=== PATIENT | male | born 1960 | race Caucasian/White ===

== ENCOUNTER → 2017-04-05 | Outpatient (CLI) | payer MEDICARE, OTHER ==
[~2017-04-05] MED LIST: ACET500T33 PO; DEXL60CA2 PO; DOCU50CA9 PO; FINA5TAB4 PO; SIMV40TA3 PO; TRAM50TA PO; WARF7.5T6 PO; [UNRECOGNIZED DRUG - CODE] IV
--- NOTE | 2017-04-05 13:24 | RAD ---
Examination: CT head without contrast History: History of traumatic brain injury Comparison: MRI from 04/06/2015 Technique: [place] CT images of the head was performed without contrast PQRS Compliance Statement: One or more of the following individualized dose reduction techniques were utilized for this examination: 1. Automated exposure control 2. Adjustment of the mA and/or kV according to patient size 3. Use of iterative reconstruction technique Findings: There is no evidence of midline shift. Falx calcifications identified. There is no acute intracranial bleed or extra-axial fluid collection identified. The russo-white matter differentiation is maintained. The visualized lateral ventricles, third ventricle, fourth ventricle are appropriate for age. The basal cisterns are uneffaced. The visualized paranasal sinuses, mastoid air cells are clear. Impression No acute intracranial findings
== END | disposition home or self-care (01) ==
LOC: CT 12:45
PROVIDERS: ATTEND Physician Assistant
DX: S09.90XA Unspecified injury of head, initial encounter (principal); G96.19 Other disorders of meninges, not elsewhere classified; Z87.820 Personal history of traumatic brain injury
CPT/HCPCS: 70450

== ENCOUNTER → 2017-04-20 | Outpatient (CLI) | payer MEDICARE, OTHER ==
--- NOTE | 2017-04-20 14:45 | RAD ---
Cervical spine radiographs History: Neck pain. Bilateral upper extremity numbness and tingling. Chronic symptoms. Comparison: None. Findings: AP, lateral, swimmer's, and open-mouth odontoid views of the cervical spine, 5 images. On lateral views, evaluation of the C6 and C7 levels is limited. Visualized cervical spine is without evidence of acute fracture. There may be mild degenerative disc disease with mild loss of disc height at C4-5 and C5-6. No gross of prevertebral soft tissue swelling is identified. There is evidence of bilateral facet degeneration at C5-6. Impression: 1. Limited evaluation of the C6 and C7 levels. No acute fracture identified. 2. Suspect mild degenerative disc disease at C4-5 and C5-6. 3. Facet degeneration at C5-6.
== END | disposition home or self-care (01) ==
LOC: DXRADRC 11:02
PROVIDERS: ATTEND Physician Assistant
DX: M47.892 Other spondylosis, cervical region (principal); R20.2 Paresthesia of skin
CPT/HCPCS: 72040

== ENCOUNTER 2017-07-27 12:58 | Emergency (ER) | payer OTHER, MEDICARE ==
[~2017-07-27] VITALS: Ht 182.9 cm; Wt 131.0 kg
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
[2017-07-27 14:43] VITALS: BP 123/68
== END 2017-07-27 15:09 | disposition home or self-care (01) ==
LOC: ER 12:58
DX: S16.1XXA Strain of muscle, fascia and tendon at neck level, initial encounter (principal); D68.9 Coagulation defect, unspecified; Z86.718 Personal history of other venous thrombosis and embolism; Z88.6 Allergy status to analgesic agent; Z87.820 Personal history of traumatic brain injury; V89.2XXA Person injured in unspecified motor-vehicle accident, traffic, initial encounter; Y93.89 Activity, other specified; Y99.8 Other external cause status; Y92.410 Unspecified street and highway as the place of occurrence of the external cause
CPT/HCPCS: 70450; 72125; 99284-25

== ENCOUNTER → 2017-09-04 | Outpatient (CLI) | payer MEDICARE, OTHER ==
--- NOTE | 2017-09-04 15:14 | RAD ---
Indication: Bilateral knee pain for several months with no recent injury. Technique: 3 views of each knee are submitted for review. No comparison is available. Findings: There is no acute fracture or dislocation. There is mild degenerative change bilaterally. There is spurring greatest in the medial compartment on the right and lateral compartment on the left. There is no compartmental narrowing. There is no joint effusion or soft tissue swelling. Impression: Mild degenerative changes in both knees.
== END | disposition home or self-care (01) ==
LOC: DXRADRC 09:43
PROVIDERS: ATTEND Physician Assistant
DX: M17.0 Bilateral primary osteoarthritis of knee (principal)
CPT/HCPCS: 73562

== ENCOUNTER → 2018-03-06 | Outpatient (CLI) | payer MEDICARE, OTHER ==
[~2018-03-06] MED LIST changes: +WARF7.5T45 PO; -WARF7.5T6 PO
--- NOTE | 2018-03-06 14:41 | RAD ---
CT HEAD WITHOUT CONTRAST03/06/2018 4:30 PM Indication: R ARM WEAKNESS Comparison: CT head without contrast July 27, 2017 Procedure: Multidetector CT imaging of the head was performed without the administration of contrast. Findings: There is no evidence of acute intracranial hemorrhage. There is no evidence of acute territorial infarction. Please note that CT is limited for evaluation of acute ischemia. MRI offers more sensitive evaluation per clinical concern persists. No mass effect or midline shift is identified . The ventricles and basilar cisterns have an appropriate appearance. No abnormal extra-axial fluid collections are seen. No acute osseous changes are identified. Impression: No evidence of acute intracranial abnormality PQRS Compliance Statement: One or more of the following individualized dose reduction techniques were utilized for this examination: 1. Automated exposure control 2. Adjustment of the mA and/or kV according to patient size 3. Use of iterative reconstruction technique
== END | disposition home or self-care (01) ==
LOC: CT 14:02
PROVIDERS: ATTEND Physician Assistant
DX: R29.898 Other symptoms and signs involving the musculoskeletal system (principal); R53.1 Weakness; E78.5 Hyperlipidemia, unspecified
CPT/HCPCS: 70450

== ENCOUNTER 2018-04-29 08:48 | Inpatient (IN) | payer MEDICARE, OTHER ==
[~2018-04-29] VITALS: Ht 182.9 cm; Wt 123.8 kg
--- NOTE | 2018-04-29 09:47 | RAD ---
Indication: Fall this morning TECHNIQUE: CT had and cervical spine without IV contrast COMPARISON: CT head from 03/06/2018 FINDINGS: CT HEAD: No pathologic extra-axial or intra-axial fluid collection. The ventricles and basal cisterns are within normal limits. No acute intracranial bleed. No focal loss of russo-white differentiation. Visualized orbits are within normal limits. No calvarial fractures. Visualized paranasal sinuses and mastoid air cells are clear. CT cervical spine: Cervical spine is in normal anatomic alignment. Atlantoaxial joint interval is preserved. No compression deformities. Large anterior ridging osteophytes seen at C4-C5. Facet joints are in normal anatomic alignment. No significant intervertebral disc space narrowing. Visualized apices are clear. Visualized noncontrast sections through the neck are within normal limits. IMPRESSION: 1. No acute fractures. 2. No acute intracranial process. Electronically signed by: Wilfredo Covarrubias DO (04/29/2018 9:43 AM) [facility]
[2018-04-29 09:53] LABS: BASO % 1 % (0-3); EOS # 0.1 x10^3/uL (0.0-0.7); EOS % 1 % (0-3); HEMATOCRIT 49.4 % (39.0-53.0); HEMOGLOBIN 16.9 g/dL (13.0-17.5); LYMPH # 1.2 x10^3/uL (1.0-4.8); LYMPH % 19 % (24-48); MEAN CORPUSCULAR HEMOGLOBIN 31 pg (25-35); MEAN CORPUSCULAR HGB CONC 34 g/dL (31-37); MEAN CORPUSCULAR VOLUME 90 fL (79-100); MONO # 0.5 x10^3/uL (0.0-1.1); MONO % 7 % (0-9); NEUT # 4.5 x10^3uL (1.8-7.7); NEUT % 72 % (31-73); PLATELET COUNT 195 x10^3/uL (140-400); RED CELL DISTRIBUTION WIDTH 14.1 % (11.5-14.5); WHITE BLOOD COUNT 6.2 x10^3/uL (4.0-11.0)
[2018-04-29 10:14] LABS: ALBUMIN 3.4 g/dL (3.4-5.0); CALCIUM 8.6 mg/dL (8.5-10.1); GFR 77.3; POTASSIUM 3.7 mmol/L (3.5-5.1); TOTAL BILIRUBIN 0.6 mg/dL (0.2-1.0); TOTAL PROTEIN 6.7 g/dL (6.4-8.2)
[2018-04-29 11:02] LABS: BACTERIA,URINE 0 /HPF (0-FEW); BILIRUBIN,URINE NEG (NEG); CLARITY,URINE CLEAR; COLOR,URINE YELLOW; GLUCOSE,URINE NEG (NEG); NITRITE,URINE NEG (NEG); RBC,URINE 0 /HPF (0-2); SQUAMOUS EPITHELIAL CELL,UR OCC /LPF; UROBILINOGEN,URINE 0.2 mg/dL (0.2 mg/dL); WBC,URINE 0 /HPF (0-4)
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
[2018-04-29 13:48] VITALS: BP 130/78
[2018-04-29] MEDS ORDERED: DABI150C PO (14:47)
[2018-04-29] MEDS ORDERED: MULT-245 PO (14:47)
[2018-04-29] MEDS ORDERED: CYCL1DRO EACHEYE (14:47)
[2018-04-29] MEDS ORDERED: FISH12002 PO (14:47)
[2018-04-29] MEDS ORDERED: CHLO15MO2 PO (14:47)
[2018-04-29 15:11] VITALS: BP 137/76
--- NOTE | 2018-04-29 15:47 | EKG ---
[address] [address] Test Date: 2018-04-29 Test Time: 09:27:59 Pat Name: ROSANGELA BARNEY Department: Room: Gender: M Inter Com Servicer: MANUEL : 1960 Requested By: GALE NORIEGA Order Number: [id number] Reading MD: Measurements Intervals [place] Rate: 67 P: 32 UT: 186 QRS: -17 QRSD: 106 T: -8 QT: 388 QTc: 413 Interpretive Statements SINUS RHYTHM LEFTWARD AXIS R-S TRANSITION ZONE IN V LEADS DISPLACED TO THE RIGHT T ABNORMALITY IN INFERIOR LEADS ABNORMAL ECG RI6.01 No previous ECG available for comparison
[2018-04-29] MEDS ORDERED: DOCUSATE SODIUM 100 MG CAPSULE PO PRN (18:00)
[2018-04-29] MEDS ORDERED: MAGNESIUM HYDROXIDE 2,400 MG/30 ML ORAL.SUSP. PO PRN (18:00)
--- NOTE | 2018-04-29 18:17 | NUR ---
The patient, ROSANGELA BARNEY, 57 y/o, M admitted by LOUIE RUSSO MD, was given written information regarding hospital policies, unit procedures and contact persons. Valuables were checked and left with pt. One bag was placed in the hospital safe by Laura Perry RN. Pt states he fell down 3 flights of stairs this morning. Pt states he does not remember any events leading up to the fall. Pt c/o weakness, unsteady gait since admission. Pt ambulates fine to the bathroom in room. Pt instructed to call for help with ambulating if he feels dizzy or lightheaded; pt verbalized understanding. Dr. Romero consulted for dizziness and weakness; dr mckay at 1815.
[2018-04-29 18:30] LABS: HEMATOCRIT 48.4 % (39.0-53.0); HEMOGLOBIN 16.7 g/dL (13.0-17.5); RED BLOOD COUNT 5.4 x10^6/uL (4.30-5.70); RED CELL DISTRIBUTION WIDTH 14.1 % (11.5-14.5); WHITE BLOOD COUNT 7.8 x10^3/uL (4.0-11.0)
[2018-04-29 18:32] LABS: ALBUMIN 3.4 g/dL (3.4-5.0); ALBUMIN/GLOBULIN RATIO 1.1 (1.0-1.7); CALCIUM 8.3 mg/dL (8.5-10.1); CREATININE 0.9 mg/dL (0.7-1.3); GFR 87.3; POTASSIUM 3.3 mmol/L (3.5-5.1); TOTAL BILIRUBIN 0.8 mg/dL (0.2-1.0); TOTAL PROTEIN 6.6 g/dL (6.4-8.2)
[2018-04-29 20:10] VITALS: BP 138/74
[2018-04-29] MEDS ORDERED: PANTOPRAZOLE 40 MG TABLET. PO SCH (21:00)
[2018-04-29] MEDS ORDERED: SIMVASTATIN 40 MG TABLET. PO SCH (21:00)
--- NOTE | 2018-04-29 21:05 | HP ---
ADMIT DATE: 04/29/2018 HISTORY OF PRESENT ILLNESS: The patient is a 57-year-old male patient who was brought to the Emergency Room with accidental fall on stairs at home. The patient lives at a residential facility at the ____. He lives by himself, does not recall the cause of this fall. He used a Life Alert necklace to alert Emergency medical services personnel and on arrival to the Emergency Room, he was complaining of headache and neck pain. He was alert and oriented to person, but otherwise was confused regarding recent time. He was initially brought to the [place], but was refused after it was determined the patient was not a former vet. He cannot recall his medical history at the time he arrived to the Emergency Room or his list of medication. No other acute symptoms or complaints. He was evaluated extensively in the Emergency Room, underwent lab work and imaging studies and was admitted for observation as he was apparently unsteady on his feet. PAST MEDICAL HISTORY: Significant for multiple traumatic brain injuries, DVTs, pseudoseizures. PAST SURGICAL HISTORY: Significant for tonsillectomy, reconstructive surgery of his face and chest, and also left arthroscopic knee surgery. ALLERGIES: HE IS ALLERGIC TO ASPIRIN. MEDICATIONS: He is on Pradaxa 150 mg twice a day, simvastatin 40 mg at bedtime, tramadol 50 mg every 6 hours, chlorhexidine gluconate, peripheral Precedex 15 mL p.o. b.i.d., cyclosporine for Restasis 1 drop to each eye twice a day, Colace 150 mg daily, Dexilant 60 mg at bedtime, multivitamin 1 tablet once a day, omega-3 1000 mg once a day. FAMILY HISTORY: Unremarkable. SOCIAL HISTORY: He lives alone. He apparently does not smoke, drink alcohol, or use recreational drugs. REVIEW OF SYSTEMS: As per history of present illness. PHYSICAL EXAMINATION: GENERAL: On arrival to the Emergency Room, he was apparently confused and disoriented, but otherwise in no apparent respiratory distress. VITAL SIGNS: His heart rate was 68, blood pressure 130/70, temperature was 97.8, respiratory rate 20, and oxygen saturation was 97%. HEENT: Normocephalic, atraumatic. NECK: Supple. HEART: Showed normal first and second heart sounds with no gallop, rub or murmur. CHEST: Clear to auscultation. No crepitation or rhonchi. ABDOMEN: Distended, soft, nontender. No guarding or rigidity. No organomegaly. All hernial orifice intact. Bowel sounds normal. NEUROLOGIC: He was awake, alert, apparently was oriented to himself, but not to time and place, although when I saw him, he was more awake and alert. He apparently walks without any assistance, although he has a walker at home that he uses occasionally. LABORATORY DATA: While in the Emergency Room, his lab work done, which showed a serum sodium 139, potassium 3.7, chloride 105, bicarbonate 27, anion gap of 7, BUN 14, creatinine 1, estimated GFR was 77 mL per minute. His glucose 115, calcium was 8.6. Total bilirubin, AST, ALT, alkaline phosphatase were normal. His total protein was 6.7, albumin was 3.4. His white cell count was 6200, hemoglobin 16.9, hematocrit 49, MCV 90 and platelet count of 195,000. His prothrombin time was 11.9, INR 1.2. Urinalysis was essentially unremarkable, has had a CT scan of the head and cervical spine. The CT scan of the head showed no pathological extraaxial or intraaxial fluid collection. The ventricles and basal cisterns are within normal limits. No acute intracranial bleed. No focal loss of hi white matter differentiation. The visualized orbits are within normal limits. No calvarial fractures. Visualized paranasal sinuses and mastoid air cells are clear. CT scan of the cervical spine showed that he has normal anatomic alignment. The atlantoaxial joint interval is preserved. No compression deformities, large anterior with ridging osteophytes are seen at C4-C5, facet joints are in normal anatomic alignment. No significant intervertebral disk space narrowing, visualized apices are clear, visualized contrast section through the neck are within normal limits. ASSESSMENT AND PLAN: The patient has some memory loss and was unsteady on his feet. A decision was made to admit him for observation. We will get physical and occupational therapy and get Dr. Romero to see him and decide the further management accordingly. LOUIE RUSSO MD DR: JOSUE/diann JOB#: [id number] / [id number]
[2018-04-29] MEDS: DABIGATRAN ETEXILATE 150 MG CAPSULE. PO SCH (22:40)
[2018-04-29] MEDS: cycloSPORINE 0.05% OPTH 1 DROP DROPERETTE OU SCH (22:40)
[2018-04-29 23:49] VITALS: BP 113/67
[2018-04-30] MEDS: traMADol 50 MG TABLET PO PRN ×2 (00:10→09:23)
[2018-04-30 05:54] VITALS: BP 103/66
[2018-04-30] MEDS ORDERED: ACETAMINOPHEN 500 MG TABLET PO PRN (08:00)
[2018-04-30] MEDS ORDERED: MULTIVITAMIN with MINERAL TABLET. PO SCH (09:00)
[2018-04-30] MEDS ORDERED: OMEGA-3 FATTY ACIDS/FISH OIL 1,000 MG CAPSULE. PO SCH (09:00)
[2018-04-30] MEDS: DABIGATRAN ETEXILATE 150 MG CAPSULE. PO SCH (09:16)
[2018-04-30] MEDS: cycloSPORINE 0.05% OPTH 1 DROP DROPERETTE OU SCH (09:16)
[2018-04-30 10:37] VITALS: BP 117/74
[2018-04-30] MEDS ORDERED: POTASSIUM CHLORIDE 20 MEQ TABLET.ER. PO ONE (13:30)
--- NOTE | 2018-04-30 14:35 | NUR ---
Discharge Note: [facility] Discharge instructions and discharge home medications reviewed with Patient and a copy given. All questions have been answered and understanding verbalized. The following instructions and handouts were given: education about falls and dizziness; discharge information Discontinued lines and drains: Peripheral IV intact. Patient discharged to Home or Self Care withSelfvia Wheelchair
--- NOTE | 2018-04-30 14:58 | DS ---
DATE OF DISCHARGE: 04/30/2018 HISTORY OF PRESENT ILLNESS: The patient is a 57-year-old male patient, who was brought to the Emergency Room with accidental fall from stairs at home. The patient lives at the residential facility at the [facility]. He lives by himself, does not recall the cause of his fall. He has a Life Alert necklace to alert the emergency medical services personnel and on arrival he was complaining of headache and neck pain. He was alert, oriented to person, otherwise was confused regarding the recent time. He was initially brought to the [place], but was refused after it was determined that the patient was not . He cannot recall his medical history at the time he arrived to the Emergency Room or his list of medications; however, by the time I saw him in the floor he was awake, alert, responding appropriately, oriented to time, place and person. He was extensively investigated in the Emergency Room and has had a CT scan of the head, neck, which basically showed no acute fracture and no acute intracranial process. He was seen in consultation by the physical therapist as well as the neurologist. He was deemed stable and can be discharged home. PHYSICAL EXAMINATION: GENERAL: When I saw him today, he was resting, slightly propped up comfortably, in no apparent distress. On questioning him, he denied any complaint. The nursing staff did not voice any concerns that he has an uneventful night. When I examined him, he looked pale, but no jaundice, cyanosis, or thyromegaly. No jugular venous distension. No limb edema. VITAL SIGNS: Her heart rate was 61, blood pressure 117/74, temperature was 98.2, respiratory rate 20, and oxygen saturation was 92% on room air. HEAD, EYES, EARS, NOSE AND THROAT: Showed normocephalic, atraumatic. NECK: Supple. HEART: Showed normal first and second sounds. No gallop, rub or murmur. CHEST: Clear to auscultation. No crepitation or rhonchi. ABDOMEN: Distended, soft, nontender. No guarding or rigidity. No organomegaly. All hernial orifice intact. Bowel sounds normal. NEUROLOGICAL: He was awake, alert, responding appropriately. All cranial nerves intact. EXTREMITIES: He moves extremities without difficulty. He is able to ambulate with a walker without any assistance according to the physical therapist. LABORATORY DATA: Showed a serum sodium 138, potassium 3.3, chloride 104, bicarbonate 25, anion gap of 9, BUN 12, creatinine 0.9, estimated GFR was 87 mL per minute, his glucose 162, calcium was 8.3. Total bilirubin, AST, ALT, alkaline phosphatase were normal. Total protein 6.6, albumin 3.4. White cell count was 7800, hemoglobin 16.7, hematocrit 48, MCV 90 and platelet count of 198,000. DISCHARGE MEDICATIONS: He was discharged home to continue on chlorhexidine gluconate for Precedex 15 mL swish and spit twice a day, cyclosporine for Restasis 1 drop to both eyes twice a day, Pradaxa 150 mg twice a day, Dexilant 60 mg once a day, docusate sodium 100 mg twice a day, fish oil 1 capsule daily, multivitamin 1 tablet once a day, simvastatin 40 mg once a day, tramadol 50 mg once a day. FINAL DISCHARGE DIAGNOSES: Fall with concussion and closed head injury. OTHER MEDICAL PROBLEMS: Include: 1. Hyperlipidemia. 2. DVT for which he is on Pradaxa. 3. Gastroesophageal reflux disease. 4. Morbid obesity. 5. Multiple traumatic brain injury. 6. Pseudoseizures. LOUIE RUSSO MD DR: JOSUE/diann JOB#: [id number] / [id number]
== END 2018-04-30 14:43 | disposition home or self-care (01) | DRG 90 ==
LOC: ER 08:48 → 1 SOUTH 12:30
PROVIDERS: ADMIT Internal Medicine; ATTEND Internal Medicine
DX: S06.0X9A Concussion with loss of consciousness of unspecified duration, initial encounter (principal); F41.9 Anxiety disorder, unspecified; F32.9 Major depressive disorder, single episode, unspecified; W10.9XXA Fall (on) (from) unspecified stairs and steps, initial encounter; E78.5 Hyperlipidemia, unspecified; K21.9 Gastro-esophageal reflux disease without esophagitis; E66.01 Morbid (severe) obesity due to excess calories; Z68.37 Body mass index [BMI] 37.0-37.9, adult; F44.5 Conversion disorder with seizures or convulsions; Z86.718 Personal history of other venous thrombosis and embolism; Z79.01 Long term (current) use of anticoagulants; Z88.6 Allergy status to analgesic agent; Y93.89 Activity, other specified; Y92.098 Other place in other non-institutional residence as the place of occurrence of the external cause; Y99.8 Other external cause status
CPT/HCPCS: 36415; 70450; 72125; 80053; 81001; 82550; 84484; 85025; 85027; 85610; 85651; 93005; 99285-25

== ENCOUNTER → 2018-10-01 | Outpatient (CLI) | payer MEDICARE, OTHER ==
[~2018-10-01] MED LIST changes: +CHLO15MO2 PO; +CYCL1DRO EACHEYE; +DABI150C PO; +FISH12002 PO; +MULT-245 PO
--- NOTE | 2018-10-01 12:38 | CARD ---
MR#: [id number] Date of Study: 10/01/2018 Ordering Physician: ISAURA MORALEZ, Referring Physician: ISAURA MORALEZ, Tech: Lisy Rivas APPROVED REPORT EXAM: Two-dimensional and M-mode echocardiogram with Doppler and color Doppler. Other Information HR: 61bpm INDICATION Hypertension/HCVD RISK FACTORS Hyperlipidemia 2D DIMENSIONS RVDd3.2 (2.9-3.5cm)Left Atrium(2D)2.9 (1.6-4.0cm) IVSd0.9 (0.7-1.1cm)Aortic Root(2D)3.5 (2.0-3.7cm) LVDd4.7 (3.9-5.9cm)LVOT Diameter2.5 (1.8-2.4cm) PWd1.1 (0.7-1.1cm)LVDs3.2 (2.5-4.0cm) FS (%) 32.6 %SV62.6 ml LVEF(%)60.9 (>50%) Aortic Valve AoV Peak Nils.106.3cm/sAoV VTI22.0cm AO Peak GR.4.5mmHgLVOT Peak Nils.94.1cm/s LVOT VTI 22.86cmAO Mean GR.3mmHg MICHELLE (VMAX)4.45iy3RER (VTI)5.18cm2 Mitral Valve MV E Zyuceubi85.7cm/sMV DECEL ZPSP682fj MV A Qadzpfuq43.8cm/sE/A Ratio0.8 Pulmonary Valve PV Peak Pgmubtnt157.8cm/sPV Peak Grad.7mmHg Pulmonary Vein S1 Yqopwyai45.4cm/sD2 Qtalnetz11.5cm/s LEFT VENTRICLE The left ventricle is normal size. There is borderline concentric left ventricular hypertrophy. The l eft ventricular systolic function is normal and the ejection fraction is within normal range. The Eje ction Fraction is 50-55%. Transmitral Doppler flow pattern is Grade II-pseudonormal filling dynamics. RIGHT VENTRICLE The right ventricle is normal size. The right ventricular systolic function is normal. ATRIA The left atrium size is normal. The right atrium size is normal. AORTIC VALVE The aortic valve is normal in structure and function. Doppler and Color Flow revealed trace aortic re gurgitation. There is no significant aortic valvular stenosis. MITRAL VALVE The mitral valve is normal in structure and function. There is no mitral valve stenosis. Doppler and Color-flow revealed trace mitral regurgitation. TRICUSPID VALVE The tricuspid valve is not well visualized. Doppler and Color Flow revealed trace tricuspid regurgita tion. PULMONIC VALVE The pulmonic valve is not well visualized. Doppler and Color Flow revealed trace pulmonic valvular re gurgitation. GREAT VESSELS The aortic root is normal in size. Normal pulmonary venous flow (Doppler). The IVC was not visualized . PERICARDIAL EFFUSION There is no evidence of significant pericardial effusion. Critical Notification Critical Value: No <Conclusion> The left ventricle is normal size. The left ventricular systolic function is normal and the ejection fraction is within normal range. The Ejection Fraction is 50-55%. There is borderline concentric left ventricular hypertrophy. There is no significant aortic valvular stenosis. Doppler and Color Flow revealed trace aortic regurgitation. Doppler and Color-flow revealed trace mitral regurgitation. Doppler and Color Flow revealed trace tricuspid regurgitation. Signed by : Gary Aguilar MD Electronically Approved : 10/01/2018 12:37:45
== END | disposition home or self-care (01) ==
LOC: ECHO 10:17
PROVIDERS: ATTEND Internal Medicine Cardiovascular Disease
DX: I11.9 Hypertensive heart disease without heart failure (principal)
CPT/HCPCS: 93306

== ENCOUNTER → 2019-10-28 | Outpatient (CLI) | payer MEDICARE, OTHER ==
[~2019-10-28] MED LIST changes: +SIMV40TA18 PO; -SIMV40TA3 PO
--- NOTE | 2019-10-28 12:03 | CARD ---
MR#: [id number] Date of Study: 10/28/2019 Ordering Physician: ISAURA MORALEZ, Referring Physician: ISAURA MORALEZ, Tech: Lisy Rivas APPROVED REPORT EXAM: Two-dimensional and M-mode echocardiogram with Doppler and color Doppler. Other Information Quality : AverageHR: 60bpm Technically limited study due to body habitus. INDICATION Hypertension/HCVD RISK FACTORS Hyperlipidemia 2D DIMENSIONS Left Atrium(2D)3.2 (1.6-4.0cm)IVSd1.2 (0.7-1.1cm) Aortic Root(2D)3.1 (2.0-3.7cm)LVDd5.0 (3.9-5.9cm) LVOT Diameter2.2 (1.8-2.4cm)PWd1.0 (0.7-1.1cm) LVDs3.2 (2.5-4.0cm)FS (%) 36.4 % SV79.3 ml Aortic Valve AoV Peak Nils.110.1cm/sAoV VTI24.9cm AO Peak GR.4.8mmHgLVOT Peak Nils.96.4cm/s LVOT VTI 19.02cmAO Mean GR.3mmHg MICHELLE (VMAX)3.22qr1TEM (VTI)2.86cm2 Mitral Valve MV E Ooapasuq76.3cm/sMV DECEL NUGC308mm MV A Yqewgnub49.0cm/sE/A Ratio1.1 Pulmonary Valve PV Peak [place]967.2cm/sPV Peak Grad.5mmHg Tricuspid Valve TR P. Mperfgsf995gn/sRAP XJONMCQY0rkTc TR Peak Gr.67nnEcACKV59fyNv Pulmonary Vein S1 Yrosoiop22.6cm/sD2 Wsodwsti85.6cm/s LEFT VENTRICLE The left ventricle is normal size. There is mild concentric left ventricular hypertrophy. The left ve ntricular systolic function is normal and the ejection fraction is within normal range. The Ejection Fraction is 50-55%. There is normal LV segmental wall motion. The left ventricular diastolic function and filling is normal for age. RIGHT VENTRICLE The right ventricle is normal size. There is normal right ventricular wall thickness. The right ventr icular systolic function is normal. ATRIA The left atrium size is normal. The right atrium size is normal. The interatrial septum is intact wit h no evidence for an atrial septal defect or patent foramen ovale as noted on 2-D or Doppler imaging. AORTIC VALVE The aortic valve is normal in structure and function. Doppler and Color Flow revealed no significant aortic regurgitation. There is no significant aortic valvular stenosis. MITRAL VALVE The mitral valve is normal in structure and function. There is no evidence of mitral valve prolapse. There is no mitral valve stenosis. Doppler and Color-flow revealed trace mitral regurgitation. TRICUSPID VALVE The tricuspid valve is normal in structure and function. Doppler and Color Flow revealed trace tricus pid regurgitation with an estimated PAP of 23 mmHg. There is no tricuspid valve stenosis. PULMONIC VALVE The pulmonic valve is not well visualized. Doppler and Color Flow revealed trace pulmonic valvular re gurgitation. GREAT VESSELS The aortic root is normal in size. The IVC was not visualized. PERICARDIAL EFFUSION There is no evidence of significant pericardial effusion. Critical Notification Critical Value: No <Conclusion> The left ventricle is normal size. The left ventricular systolic function is normal and the ejection fraction is within normal range. The Ejection Fraction is 50-55%. There is mild concentric left ventricular hypertrophy. Doppler and Color Flow revealed no significant aortic regurgitation. There is no significant aortic valvular stenosis. Doppler and Color-flow revealed trace mitral regurgitation. Doppler and Color Flow revealed trace tricuspid regurgitation with an estimated PAP of 23 mmHg. Signed by : Gary Aguilar MD Electronically Approved : 10/28/2019 12:03:24
== END | disposition home or self-care (01) ==
LOC: ECHO 10:10
PROVIDERS: ATTEND Internal Medicine Cardiovascular Disease
DX: I11.9 Hypertensive heart disease without heart failure (principal)
CPT/HCPCS: 93306

== ENCOUNTER → 2020-08-19 | Outpatient (CLI) | payer MEDICARE, OTHER ==
--- NOTE | 2020-08-20 08:19 | RAD ---
MR#: [id number] Date of Study: 08/19/2020 Ordering Physician: ISAURA MORALEZ, Referring Physician: ISAURA MORALEZ, Tech: Kristi Burnett RVT, JOCELYNE APPROVED REPORT Patient Location : OUT-PATIENT Indications Prior bilateral greater saphenous vein and lesser saphenous veins ablated. On the right side near the area of the calf wound there is a large diameter vein measuring approximat cee 5 mm with a reflux time of 1.2 seconds. This may be a large collateral or recanalization of the greater saphenous vein. Greater Saphenous Veins (GSV) Significant venous relux noted in the RIGHT GSV at the following levels : Superficial Femoral Junctio n Critical Notification Critical Value: No <Conclusion> 1. Previously ablated bilateral greater and lesser saphenous veins. 2. In the area of the right calf wound there is a large diameter vein with notable reflux suggestive of a lost and found clerk or recanalization of a previous great saphenous vein ablation Signed by : Skyler Hagen, Electronically Approved : 08/20/2020 08:18:57
--- NOTE | 2020-08-20 08:39 | RAD ---
MR#: [id number] Date of Study: 08/19/2020 Ordering Physician: ISAURA MORALEZ, Referring Physician: ISAURA MORALEZ, Tech: Kristi Burnett RVT,JOCELYNE APPROVED REPORT Patient Location: OUT-PATIENT Indications Grayscale images demonstrate mild to moderate above-knee calcification and moderate to severe below-k nee calcification. Based on spectral waveforms and color Doppler and velocities overall there is 0 to less than 50% sten osis in the lower extremity arterial vessels. There is three-vessel runoff below the knees bilateral ly. VELOCITY AND DOPPLER WAVEFORM ANALYSIS RIGHT cm/secWaveformSeverity LEFT cm/secWaveform Severity pCFA 105.8TriphasicpCFA 86.8Triphasic Prof Fem Art. 47.0TriphasicProf Fem Art. 64.0Triphasic Fem Art Prox. 110.7TriphasicFem Art Prox. 86.8Triphasic Fem Art Mid. 82.6TriphasicFem Art Mid. 78.1Triphasic Fem Art Dist. 63.6TriphasicFem Art Dist. 77.4Triphasic Pop Art(Fossa) 67.5TriphasicPop Art(AK) 66.5Triphasic TREASURY MANAGER Prox. 60.4TriphasicPTA Prox. 72.3Triphasic TREASURY MANAGER Dist. 89.3TriphasicPTA Dist. 108.2Triphasic Per Art Prox. 34.3TriphasicPer Art Prox. 32.2Triphasic JOSEPHINE Prox. 41.3TriphasicATA Prox. 51.3Triphasic DPA 42TriphasicDPA 68Triphasic Critical Notification Critical Value: No <Conclusion> 1. No significant bilateral lower extremity arterial stenosis identified with three-vessel runoff Signed by : Skyler Hagen, Electronically Approved : 08/20/2020 08:39:45
== END | disposition home or self-care (01) ==
LOC: US 12:04
PROVIDERS: ATTEND Internal Medicine Cardiovascular Disease
DX: I87.2 Venous insufficiency (chronic) (peripheral) (principal); I70.203 Unspecified atherosclerosis of native arteries of extremities, bilateral legs; S81.801A Unspecified open wound, right lower leg, initial encounter; X58.XXXA Exposure to other specified factors, initial encounter; Y93.89 Activity, other specified; Y92.89 Other specified places as the place of occurrence of the external cause; Y99.8 Other external cause status
CPT/HCPCS: 93925; 93970

== ENCOUNTER → 2021-03-08 | Outpatient (CLI) | payer MEDICARE, OTHER ==
--- NOTE | 2021-03-08 18:02 | CARD ---
MR#: [id number] Date of Study: 03/08/2021 Ordering Physician: ISAURA MORALEZ, Referring Physician: ISAURA MORALEZ, Tech: Dede Redmond RDCS APPROVED REPORT EXAM: Two-dimensional and M-mode echocardiogram with Doppler and color Doppler. Other Information Quality : FairHR: 60bpm Technically limited study due to INDICATION Hypertension/HCVD 2D DIMENSIONS RVDd3.0 (2.9-3.5cm)Left Atrium(2D)3.5 (1.6-4.0cm) IVSd1.0 (0.7-1.1cm)Aortic Root(2D)2.9 (2.0-3.7cm) LVDd4.6 (3.9-5.9cm)LVOT Diameter2.1 (1.8-2.4cm) PWd1.0 (0.7-1.1cm)LVDs2.8 (2.5-4.0cm) FS (%) 39.1 %SV68.3 ml LVEF(%)60.0 (>50%) Aortic Valve AoV Peak Nils.101.0cm/sAoV VTI18.7cm AO Peak GR.4.1mmHgLVOT Peak Nils.108.8cm/s LVOT VTI 21.27cmAO Mean GR.2mmHg MICHELLE (VMAX)3.00eh7QRC (VTI)4.10cm2 Mitral Valve MV E Vhojszmn00.8cm/sMV DECEL TZFH586qa MV A Cpdaawzy97.1cm/sE/A Ratio0.8 Pulmonary Vein S1 Ogoptral17.9cm/sD2 Hflgpnwz21.2cm/s LEFT VENTRICLE The left ventricle is normal size. There is normal left ventricular wall thickness. The left ventricu lar systolic function is normal and the ejection fraction is within normal range. The Ejection Fracti on is 55-60%. There is normal LV segmental wall motion. Transmitral Doppler flow pattern is Grade I-a bnormal relaxation pattern. RIGHT VENTRICLE The right ventricle is normal size. The right ventricular systolic function is normal. ATRIA The left atrium size is normal. The right atrium size is normal. The interatrial septum is intact wit h no evidence for an atrial septal defect or patent foramen ovale as noted on 2-D or Doppler imaging. AORTIC VALVE Not well visualized. Grossly appears trileaflet with mild calcification. Doppler and Color Flow revea led no significant aortic regurgitation. There is no significant aortic valvular stenosis. MITRAL VALVE The mitral valve is calcified but opens well. There is no evidence of mitral valve prolapse. There is no mitral valve stenosis. Doppler and Color Flow revealed no mitral valve regurgitation noted. TRICUSPID VALVE The tricuspid valve is normal in structure and function. Doppler and Color Flow revealed no tricuspid valve regurgitation noted. There is no tricuspid valve stenosis. PULMONIC VALVE The pulmonic valve is not well visualized. Doppler and Color Flow revealed mild pulmonic valvular reg urgitation. There is no pulmonic valvular stenosis. GREAT VESSELS The aortic root is normal in size. The ascending aorta is not well seen. The IVC was not visualized. PERICARDIAL EFFUSION There is no evidence of significant pericardial effusion. Critical Notification Critical Value: No <Conclusion> The left ventricular systolic function is normal and the ejection fraction is within normal range. Th e Ejection Fraction is 55-60%. There is normal LV segmental wall motion. Technically difficult study. Signed by : Skyler Hagen, Electronically Approved : 03/08/2021 18:01:36
== END ==
LOC: ECHO 10:05
PROVIDERS: ATTEND Internal Medicine Cardiovascular Disease
DX: I08.8 Other rheumatic multiple valve diseases (principal)
CPT/HCPCS: 93306